=== PATIENT | male | born 1950 | race Caucasian/White ===

== ENCOUNTER 2017-05-25 11:28 | Day surgery (SDC) | payer MEDICARE ==
[~2017-05-25 11:28] MED LIST: AMLOPOW PO; BP MED PO; RAPA8CAP PO; VENL25TA14 PO
[2017-05-25] MEDS ORDERED: CHLORHEXIDINE GLUCONATE 2 % 1 PACK (2 CLOTHS) TOPICAL PRN (12:15)
[2017-05-25] MEDS ORDERED: SODIUM CHLORID 0.9% 500 ML IV PRN (12:15)
[2017-05-25] MEDS ORDERED: POVIDONE IODINE 5% (ANTISEPSIS KIT) 4 APPLICATIONS EACH NARE PRN (12:15)
[2017-05-25] MEDS ORDERED: LACTATED RINGER'S 1000 ML IV PRN (12:15)
[2017-05-25] MEDS ORDERED: INSULIN HUMAN REGULAR 1,000 UNITS/10 ML VIAL SQ PRN (12:15)
[2017-05-25] MEDS ORDERED: METOPROLOL TARTRATE 25 MG TAB PO PRN (12:15)
[2017-05-25] MEDS ORDERED: PROPOFOL 200 MG/20 ML AMP IV ONE (12:16)
[2017-05-25] MEDS ORDERED: VENL75CA44 PO (12:33)
[2017-05-25] MEDS ORDERED: AMLO10TA2 PO (12:33)
[2017-05-25] MEDS ORDERED: TAMS0.4C4 PO (12:33)
[2017-05-25] MEDS ORDERED: LOSA100T2 PO (12:33)
--- NOTE | 2017-05-26 16:15 | EKG ---
Date Performed: 05/25/2017 Time Performed: 12:26:32 PTAGE: 66 years EKG: Sinus rhythm Left axis deviation RBBB with left anterior fascicular block Inferior T wave changes are nonspecific Abnormal ECG NO PREVIOUS TRACING DOCTOR: Justino Parsons Interpretating Date/Time 05/26/2017 16:13:51
--- NOTE | 2017-05-26 16:40 | CF ---
cc: REGGIE MORALES M.D., GEORGE MD INDICATIONS FOR THE PROCEDURE: Severe aortic regurgitation to evaluate aortic valve. CONSENT: Full informed consent was obtained prior to the procedure. The risks of , bleeding, perforation, aspiration, foreseen and unforeseen complications were reviewed. The patient fully appeared to understand the risks. DESCRIPTION OF THE PROCEDURE IN DETAIL: The patient was prepped and draped in the usual manner. The patient was given anesthesia as per the anesthesia department. A full transesophageal echocardiogram was performed. FINDINGS: There is evidence of severe aortic regurgitation. The aortic valve is trileaflet. No obvious dissection, et cetera is seen. Left ventricular function is normal. The interventricular septum and interatrial septum is intact. Right ventricle and right atrium are intact. CONCLUSION: Severe aortic regurgitation. PLAN: Consider diagnostic heart catheterization plus/minus CT angiography to evaluate the aorta. Reggie Morales MD, FRCP,FACCLEVELAND CLINIC EUCLID HOSPITALJ/JCC /2:09 PM /4:31 PM
== END 2017-05-25 15:06 | disposition home or self-care (01) ==
LOC: HDOC 11:28 → HDIC 11:30 → HDOC 15:06
PROVIDERS: ATTEND Internal Medicine Cardiovascular Disease
DX: I35.1 Nonrheumatic aortic (valve) insufficiency (principal); I45.2 Bifascicular block; I10 Essential (primary) hypertension; Z85.46 Personal history of malignant neoplasm of prostate; Z87.891 Personal history of nicotine dependence; Z79.899 Other long term (current) drug therapy
CPT/HCPCS: 93005; 93312; 93320; 93325

== ENCOUNTER 2017-11-24 10:35 | Emergency (ER) | payer MEDICARE ==
[~2017-11-24] VITALS: Ht 188 cm; Wt 112.2 kg
[~2017-11-24 10:35] MED LIST changes: +AMLO10TA2 PO; -AMLOPOW PO; -BP MED PO; +LOSA100T2 PO; -RAPA8CAP PO; +TAMS0.4C4 PO; -VENL25TA14 PO; +VENL75CA44 PO
[2017-11-24 11:01] VITALS: BP 177/81; PULSE 80; RESP 16; TEMP 98.1; O2SAT 97
[2017-11-24] MEDS ORDERED: ASPI81CH6 CHEW (11:17)
[2017-11-24] MEDS ORDERED: VIAG100T PO (11:17)
[2017-11-24] MEDS ORDERED: LOSA100T PO (11:17)
[2017-11-24] MEDS ORDERED: TAMS0.4C4 PO (11:17)
[2017-11-24] MEDS ORDERED: LABE200T2 PO (11:17)
[2017-11-24] MEDS ORDERED: PLAV75TA29 PO (11:17)
--- NOTE | 2017-11-24 11:19 | PD ---
HPI Chief Complaint: Complaint Time Seen by Provider: 11:16 Travel History International Travel<30 days: No Contact w/Intl Traveler<30days: No Traveled to known affect area: No History of Present Illness HPI 67-year-old male came to the emergency room with his with history of hematuria that he noticed this morning and he urinated for the first time. Patient says that there was a lot of blood in the urine and it looked like he had cut his finger. This was completely painless. No blood clots. Patient does not have history of few mature in the past. He is on Plavix and aspirin. Patient says after he has been here he urinated one more time to give a urine sample and it seems like the quantity of blood was getting less. No history of fever or chills. He says he had oral sex last night that his performed on him after he had taken some Viagra. Vital signs otherwise stable. He does see a urologist. He has history of prostate cancer that has been operated on. He was also told by his urologist that he has a stone in his kidney but once again today there was no pain. He does not appear to be in any distress. No history of lightheadedness or dizziness. PFSH Past Medical History Narrative Medical List of his past medical, surgical, social and family history is reviewed from the nursing note. Hx Anticoagulant Therapy: Yes Depression: Yes Cardiovascular Problems: Yes (htn on meds, aortic valve repair) Diminished Hearing: No Hypertension: Yes Influenza Vaccination: Yes ?: Not Past Surgical History Cardiac Surgery: Yes (aortic valve repair) Social History Alcohol Use: Yes Tobacco Use: No Allergies-Medications (Allergen,Severity, Reaction): Coded Allergies: No Known Allergies (Unverified Adverse Reaction, Unknown, 11/24/17) Comments No known drug allergies. Reported Meds & Prescriptions Reported Meds & Active Scripts Active Macrobid (Nitrofurantoin Monoh/Nitrofur Macro) 100 Mg Cap 100 Mg PO BID 10 Days Reported Viagra (Sildenafil Citrate) 100 Mg Tab 100 Mg PO DAILY PRN Aspirin Low Dose (Aspirin) 81 Mg Chew 81 Mg CHEW DAILY Labetalol (Labetalol HCl) 200 Mg Tab 200 Mg PO BID Plavix (Clopidogrel Bisulfate) 75 Mg Tab 75 Mg PO DAILY Tamsulosin (Tamsulosin HCl) 0.4 Mg Cap 0.4 Mg PO BID Losartan (Losartan Potassium) 100 Mg Tab 50 Mg PO BID Venlafaxine ER 24 HR (Venlafaxine HCl) 75 Mg Cap 75 Mg PO DAILY Amlodipine (Amlodipine Besylate) 10 Mg Tab 10 Mg PO DAILY Narrative Medication List of his home medications reviewed from the nursing note. Review of Systems Except as stated in HPI: all other systems reviewed are Neg Genitourinary: Positive: Hematuria Physical Exam Narrative GENERAL: Awake, alert, obese, no obvious distress SKIN: Focused skin assessment warm/dry. HEAD: Atraumatic. Normocephalic. EYES: Pupils equal and round. No scleral icterus. No injection or drainage. ENT: No nasal bleeding or discharge. Mucous membranes pink and moist. NECK: Trachea midline. No JVD. CARDIOVASCULAR: Regular rate and rhythm. No murmur appreciated. RESPIRATORY: No accessory muscle use. Clear to auscultation. Breath sounds equal bilaterally. GASTROINTESTINAL: Abdomen soft, non-tender, nondistended. Hepatic and splenic margins not palpable. MUSCULOSKELETAL: No obvious deformities. No clubbing. No cyanosis. No edema. NEUROLOGICAL: Awake and alert. No obvious cranial nerve deficits. Motor grossly within normal limits. Normal speech. PSYCHIATRIC: Appropriate mood and affect; insight and judgment normal. Data Data Last Documented VS Vital Signs Date Time Temp Pulse Resp B/P (MAP) Pulse Ox O2 Delivery O2 Flow Rate FiO2 11/24/17 12:34 78 18 148/77 (100) 96 11/24/17 11:01 98.1 Orders Orders Urinalysis - C+S If Indicated (11/24/17 11:02) Complete Blood Count With Diff (11/24/17 11:24) Basic Metabolic Panel (Bmp) (11/24/17 11:24) Ct Abd/Pel W/O Iv Contrast (11/24/17 11:24) Ecg Monitoring (11/24/17 11:24) Iv Access Insert/Monitor (11/24/17 11:24) Sodium Chloride 0.9% Flush (Ns Flush) (11/24/17 11:30) Prothrombin Time / Inr (Pt) (11/24/17 11:24) Urine Culture (11/24/17 11:15) Sodium Chlorid 0.9% 500 Ml Inj (Ns 500 M (11/24/17 11:45) Nitrofurantoin Monohyd Macrocr (Macrobid (11/24/17 11:45) Ed Discharge Order (11/24/17 12:14) Labs Laboratory Tests Test 11/24/17 11:15 11/24/17 11:35 Urine Collection Type CLEAN CATCH Urine Color RED Urine Turbidity MARKED Urine pH 5.0 Urine Specific [place] 1.017 Urine Protein 300 OR GREATER mg/dL Urine Glucose (UA) 100 mg/dL Urine Ketones 15 mg/dL Urine Occult Blood LARGE Urine Nitrite POS Urine Bilirubin NEG Urine Leukocyte Esterase MOD Urine RBC INNUM /hpf Urine WBC 9-14 /hpf Urine Squamous Epithelial Cells 0-5 /hpf Urine Amorphous Sediment FEW Microscopic Urinalysis Comment CULTURE INDICATED Urine Collection Time 1115 White Blood Count 7.9 TH/MM3 Red Blood Count 4.08 MIL/MM3 Hemoglobin 13.1 GM/DL Hematocrit 39.2 % Mean Corpuscular Volume 95.9 FL Mean Corpuscular Hemoglobin 32.1 PG Mean Corpuscular Hemoglobin Concent 33.5 % Red Cell Distribution Width 12.5 % Platelet Count 158 TH/MM3 Mean Platelet Volume 8.3 FL Neutrophils (%) (Auto) 75.7 % Lymphocytes (%) (Auto) 15.0 % Monocytes (%) (Auto) 6.6 % Eosinophils (%) (Auto) 2.4 % Basophils (%) (Auto) 0.3 % Neutrophils # (Auto) 6.0 TH/MM3 Lymphocytes # (Auto) 1.2 TH/MM3 Monocytes # (Auto) 0.5 TH/MM3 Eosinophils # (Auto) 0.2 TH/MM3 Basophils # (Auto) 0.0 TH/MM3 CBC Comment DIFF FINAL Differential Comment Prothrombin Time 10.2 SEC Prothromb Time International Ratio 1.0 RATIO Blood Urea Nitrogen 19 MG/DL Creatinine 1.10 MG/DL Random Glucose 104 MG/DL Calcium Level 8.7 MG/DL Sodium Level 143 MEQ/L Potassium Level 4.8 MEQ/L Chloride Level 109 MEQ/L Carbon Dioxide Level 27.7 MEQ/L Anion Gap 6 MEQ/L Estimat Glomerular Filtration Rate 67 ML/MIN [facility] Medical Decision Making Medical Screen Exam Complete: Yes Emergency Medical Condition: Yes Medical Record Reviewed: Yes Differential Diagnosis Renal tumor, bladder tumor, UTI, ureteral calculus Narrative Course 11:59 AM the UA came back which is suggestive of UTI with blood. CT scan is negative for any obvious pathology that explains the gross hematuria. Awaiting for the blood test results to come back. Patient will be getting 500 cc of IV fluid bolus and by mouth Macrobid. If the rest of the test results of back and within acceptable limits she'll be discharged home on prescription for Macrobid. He understands that he'll need to follow up with his urologist once he is discharge. Procedures EKG Prior to Arrival: No Diagnosis Primary Impression: Hemorrhagic cystitis Referrals: Primary Care Physician 2 days Additional Instructions: Please follow-up with a urologist on Sunday first thing in the morning. Take the medication as per the prescription direction. Return to ER if condition worsens or any other new concerns. Med/Other Pt SpecificInfo: Prescription(s) given Scripts Nitrofurantoin Monohydrate Macrocrystals (Macrobid) 100 Mg Cap 100 MG PO BID for Infection for 10 Days, #20 CAP 0 Refills Prov: Dave Garcia MD 11/24/17 Disposition: 01 DISCHARGE HOME Condition: Stable Dave Garcia MD Nov 24, 2017 11:18
[2017-11-24 11:25] LABS: BILIRUBIN, URINE NEG (NEG); BLOOD, URINE LARGE (NEG); GLUCOSE,URINE 100 mg/dL (NEG); KETONE, URINE 15 mg/dL (NEG); NITRITE,URINE POS (NEG); URINE LEUKOCYTE ESTERASE MOD (NEG)
[2017-11-24 11:27] LABS: URINE COLOR RED (YELLW/STRAW)
[2017-11-24] MEDS ORDERED: SODIUM CHLORIDE 0.9% FLUSH 10 ML FLUSH IVF PRN (11:30)
[2017-11-24 11:34] LABS: AMORPHOUS SEDIMENT, URINE FEW; RBC, URINE INNUM /hpf (0-3); SQUAMOUS EPITHELIAL CELL URINE 0-5 /hpf (0-5)
[2017-11-24 11:44] LABS: BASOPHIL % 0.3 % (0.0-2.0); EOSINOPHIL # 0.2 TH/MM3 (0-0.4); EOSINOPHIL % 2.4 % (0.0-4.0); HEMATOCRIT 39.2 % (39.0-51.0); HEMOGLOBIN 13.1 GM/DL (13.0-17.0); LYMPHOCYTE # 1.2 TH/MM3 (1.0-4.8); MEAN CELL VOLUME 95.9 FL (80.0-100.0); MEAN CORPUSCULAR HEMOGLOBIN 32.1 PG (27.0-34.0); MEAN CORPUSCULAR HGB CONC 33.5 % (32.0-36.0); MEAN PLATELET VOLUME 8.3 FL (7.0-11.0); MONO % 6.6 % (0.0-8.0); MONOCYTE # 0.5 TH/MM3 (0-0.9); NEUT % 75.7 % (16.0-70.0); PLATELET COUNT 158 TH/MM3 (150-450); RED BLOOD COUNT 4.08 MIL/MM3 (4.50-5.90); RED CELL DISTRIBUTION WIDTH 12.5 % (11.6-17.2); WHITE BLOOD COUNT 7.9 TH/MM3 (4.0-11.0)
[2017-11-24] MEDS ORDERED: SODIUM CHLORID 0.9% 500 ML INJ 500 ML IV ONE (11:45)
[2017-11-24] MEDS ORDERED: NITROFURANTOIN MONOHYD MACROCR 100 MG CAP PO ONE (11:45)
--- NOTE | 2017-11-24 11:55 | RADRPT ---
EXAM DATE/TIME: 11/24/2017 11:37 [place] COMPARISON: No previous studies available for comparison. INDICATIONS : Hematuria since this morning. ORAL CONTRAST: No oral contrast ingested. RADIATION DOSE: 26.89 CTDIvol (mGy) MEDICAL HISTORY : Cardiovascular disease. Hypertension. SURGICAL HISTORY : None. ENCOUNTER: Initial ACUITY: 1 day PAIN SCALE: 0/10 LOCATION: abdomen TECHNIQUE: Volumetric scanning of the abdomen and pelvis was performed. Using automated exposure control and ad justment of the mA and/or kV according to patient size, radiation dose was kept as low as reasonably achievable to obtain optimal diagnostic quality images. DICOM format image data is available electro nically for review and comparison. The lack of IV contrast limits the diagnosis for certain organ pa thology. FINDINGS: LOWER LUNGS: The visualized lower lungs are clear. LIVER: Homogeneous density without lesion. There is no dilation of the biliary tree. No calcified gallston es. SPLEEN: Normal size without lesion. PANCREAS: Within normal limits. KIDNEYS: Normal in size and shape. There is no mass or hydronephrosis. There is a 6 mm nonobstructing stone i n the lower pole the left kidney. There is a 9 mm cyst along the midpole the right kidney. ADRENAL GLANDS: Within normal limits. VASCULAR: There is no aortic aneurysm. BOWEL/MESENTERY: The stomach, small bowel, and colon demonstrate no acute abnormality. There is no free intraperitone al air or fluid. The appendix is unremarkable. No inflammatory changes. ABDOMINAL WALL: Within normal limits. RETROPERITONEUM: There is no lymphadenopathy. BLADDER: No wall thickening or mass. No bladder stones. REPRODUCTIVE: Within normal limits. INGUINAL: There is no lymphadenopathy or hernia. MUSCULOSKELETAL: Within normal limits for patient age. CONCLUSION: 1. There is a 6 mm nonobstructive stone lower pole left kidney. 2. 9 mm right renal cyst. 3. Otherwise, unremarkable exam for patient's age. Jasper Panda MD on November 24, 2017 at 11:50 Board Certified Radiologist. This report was verified electronically.
[2017-11-24 11:59] LABS: PROTHROMBIN TIME - PATIENT 10.2 SEC (9.8-11.6)
[2017-11-24 12:02] LABS: CALCIUM 8.7 MG/DL (8.5-10.1)
[2017-11-24 12:03] LABS: BICARBONATE 27.7 MEQ/L (21.0-32.0)
[2017-11-24 12:06] LABS: CREATININE 1.1 MG/DL (0.60-1.30)
[2017-11-24] MEDS ORDERED: MACR100C2 PO (12:16)
[2017-11-24 12:34] VITALS: BP 148/77
== END 2017-11-24 12:35 | disposition home or self-care (01) ==
LOC: PHEFT 10:35
DX: N30.81 Other cystitis with hematuria (principal); Z85.46 Personal history of malignant neoplasm of prostate; Z79.01 Long term (current) use of anticoagulants; I10 Essential (primary) hypertension
CPT/HCPCS: 74176; 80048; 81001; 85025; 85610; 87086; 99284; J7040